=== PATIENT | female | born 1940 | race Caucasian/White ===

== ENCOUNTER 2018-02-15 17:15 | Emergency (ER) | payer MEDICAID, MEDICARE ==
[~2018-02-15] VITALS: Ht 160 cm; Wt 59.0 kg
[~2018-02-15 17:15] MED LIST: ABILIFY PO; CLONAZEPAM PO; COGENTIN PO; CYMBALTA PO; GABA300C PO; LISI-603 PO; LORAZEPAM PO; NEURON PO; QUETIAPINE FUMARATE PO; REMERON PO; RESPERIDONE PO; SERT50TA14 PO; TRAZODONE PO; ZOLPIDEM TARTRATE PO; ZYPREXA PO
[2018-02-15] MEDS ORDERED: HYDROMORPHONE 1 MG/1 ML DISP.SYRIN IM ONE (17:30)
[2018-02-15] MEDS ORDERED: ONDANSETRON 4 MG/2 ML VIAL IM ONE (17:30)
[2018-02-15] MEDS ORDERED: HYDROMORPHONE 2 MG/1 ML DISP.SYRIN ONE (17:36)
[2018-02-15] MEDS ORDERED: ONDANSETRON 4 MG/2 ML VIAL ONE (17:36)
--- NOTE | 2018-02-15 18:20 | NUR ---
RECEIVED PT, HIP PAIN, HX OF MULTIPLE FALLS. PELVIC XRAY DONE. PT RECEIVED PAIN KILLER.
--- NOTE | 2018-02-15 19:12 | NUR ---
Patient discharged to home in stable conditon. Written and verbal after care instructions given. Patient verbalizes understanding of instructions.
== END 2018-02-15 19:14 | disposition home or self-care (01) ==
LOC: ER 17:19
DX: G89.29 Other chronic pain (principal); M25.552 Pain in left hip; I10 Essential (primary) hypertension
CPT/HCPCS: 72170; 96372 ×2; 99284; J1170; J2405; A4663

== ENCOUNTER 2018-09-17 21:57 | Inpatient (IN) | payer MEDICARE, OTHER ==
[~2018-09-17] VITALS: Ht 152.4 cm; Wt 59.0 kg
[2018-09-17] MEDS ORDERED: ACET-2154 PO (22:19)
[2018-09-17] MEDS ORDERED: LORA1TAB PO (22:19)
[2018-09-17] MEDS ORDERED: OLAN5TAB3 PO (22:19)
[2018-09-17] MEDS ORDERED: TEMA7.5C PO (22:19)
[2018-09-17] MEDS ORDERED: MAG-55 PO (22:19)
[2018-09-17] MEDS ORDERED: GABA-534 PO (22:19)
[2018-09-17] MEDS ORDERED: MAGN400O6 PO (22:19)
[2018-09-17 22:35] LABS: BASOPHILS # (AUTO) 0.1 K/uL (0.0-8.0); BASOPHILS % (AUTO) 0.8 % (0.0-2.0); EOSINOPHILS % (AUTO) 0.5 % (0.0-7.0); HEMATOCRIT 36.8 % (31.2-41.9); HEMOGLOBIN 12.4 g/dL (10.9-14.3); LYMPHOCYTES # (AUTO) 1.5 K/uL (20.0-40.0); LYMPHOCYTES % (AUTO) 23.2 % (20.5-51.5); MEAN CORPUSCULAR HEMOGLOBIN 31.9 uug (24.7-32.8); MEAN CORPUSCULAR HGB CONC 34 g/dL (32.3-35.6); MONOCYTES # (AUTO) 0.7 K/uL (2.0-10.0); NEUTROPHILS # (AUTO) 4.2 K/uL (1.8-8.9); NEUTROPHILS % (AUTO) 64.5 % (38.5-71.5); PLATELET COUNT (AUTO) 229 K/uL (179-408); RED BLOOD CELL COUNT(AUTO) 3.88 MIL/uL (3.63-4.92); WHITE BLOOD COUNT (AUTO) 6.5 K/uL (3.8-11.8)
[2018-09-17 22:48] LABS: CARBON DIOXIDE 31 mmol/L (21-32); CHLORIDE 110 mmol/L (98-107); CREATININE 0.6 mg/dL (0.6-1.3); GLUCOSE 111 mg/dL (74-106); POTASSIUM 3.6 mmol/L (3.5-5.1); UREA NITROGEN, BLOOD 24 mg/dL (7-18)
[2018-09-17 22:54] LABS: ACETAMINOPHEN < 2.0 ug/mL (10-30); ALANINE AMINOTRANSFERASE 16 U/L (14-59); ALKALINE PHOSPHATASE 84 U/L (50-136); ASPARTATE AMINOTRANSFERASE 9 U/L (15-37); BILIRUBIN,DIRECT 0.1 mg/dL (0.0-0.2); BILIRUBIN,TOTAL 0.2 mg/dL (0.2-1.0); TOTAL PROTEIN, SERUM 6.9 g/dL (6.4-8.2)
[2018-09-17 22:57] LABS: ETHANOL < 3 MG/DL (0-0)
[2018-09-17 23:01] LABS: *BILIRUBIN,URIN NEGATIVE (NEGATIVE); *BLOOD, URINE NEGATIVE (NEGATIVE); *CLARITY,URINE SLIGHTLY CLOUDY (CLEAR); *COLOR,URINE YELLOW (YELLOW); *KETONES,URINE TRACE (NEGATIVE); *UROBILINOGEN,URINE 0.2 E.U./dl (NORMAL); LEUKOCYTE ESTERASE ,URINE NEGATIVE (NEGATIVE); NITRITE, URINE NEGATIVE (NEGATIVE); UGLUCOSE NEGATIVE (NEGATIVE)
[2018-09-17 23:02] LABS: THYROID STIMULATING HORMONE 2.613 mIU/mL (0.358-3.740)
[2018-09-17 23:09] LABS: BACTERIA,URINE NONE SEEN /HPF (NONE SEEN); MUCUS,URINE FEW /LPF (0-FEW); RBC,URINE 0-3 /HPF (0-3); SQUAMOUS EPITHELIAL CELL,UR FEW /HPF (NONE SEEN); URINE AMORPHOUS URATE MODERATE /HPF; WBC,URINE 0-3 /HPF (0-3)
[2018-09-17 23:19] LABS: *AMPHETAMINE, URINE NEGATIVE (NEGATIVE); *BARBITURATE, URINE NEGATIVE (NEGATIVE); *CANNABINOID, URINE NEGATIVE (NEGATIVE); *COCCAINE, URINE NEGATIVE (NEGATIVE); *OPIATE, URINE POSITIVE (NEGATIVE); *PHENCYCLIDINE SCREEN,URINE NEGATIVE (NEGATIVE)
--- NOTE | 2018-09-17 23:45 | NUR ---
PATIENT ANXIOUS,CONSTATNTLY GETTING OUT OF BED STATING "I AM SO NERVOUS." NO DISTRESS NOTED. PROVIDED COMFORT AND SAFETY MEASURES
[2018-09-18] MEDS ORDERED: LORAZEPAM 0.5 MG TABLET PO ONE
[2018-09-18] MEDS ORDERED: LORAZEPAM 1 MG TABLET ONE (00:02)
--- NOTE | 2018-09-18 00:03 | NUR ---
MEDICALLY CLEARED BY DR PAYTON
--- NOTE | 2018-09-18 00:33 | NUR ---
PATIENT TRANSFERED TO MHU VIA STEPHANE
[2018-09-18] MEDS ORDERED: LORAZEPAM 1 MG TABLET PO PRN (01:00)
[2018-09-18] MEDS ORDERED: MAGNESIUM HYDROXIDE 30 ML LIQUID UDC PO PRN (01:00)
[2018-09-18] MEDS ORDERED: MAG HYDROX/AL HYDROX/SIMETH 30 ML LIQUID UDC PO PRN (01:00)
[2018-09-18] MEDS: TEMAZEPAM 7.5 MG CAPSULE PO PRN (01:05)
[2018-09-18 01:15] VITALS: BP 157/86
[2018-09-18 01:22] VITALS: BP 157/86
--- NOTE | 2018-09-18 01:30 | NUR ---
Admission Note: 77 y.o. female brought to MHU from ER via wheelchair accompanied by ER staff. Pt admitted on a 5150 for GD under the care of Dr Gentile and Dr Maravilla. According to the 5150, Pt attempted to elope from her facility at [facility] by removing a glass window, then trying to crawl over a wall. Pt was agitated and grandiose, and appeared to be in a manic episode. Upon admission to the unit, Pt is A+Ox1 to herself only. VS stable, no c/o pain. Upon face to face evaluation, Pt is confused and forgetful. Pt states she has no recall of the events preceding her admission to MHU, and that It doesnt sound like something I would do. Denies SI/HI/AH/VH. Exhibits flat affect and pressured speech. Cooperative with admission process, but unable to sign paperwork d/t confusion. 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 I have a doctorate in literature. When asked how much Ativan she took, Pt had no recall of making that statement and denied taking any Ativan before she was admitted. Pt reports previous alcohol abuse but stated she hasnt drank for years. Skin assessment completed-skin c/d/i. Medical h/o HTN, OA, DJD, chronic pain, frequent falls, dementia, GERD, HLD, ETOH abuse, MDD, and schizophrenia-bipolar type. Allergy to levofloxacin noted. Dr Gentile and Dr Maravilla notified of admission, meds reconciled, orders received. Pt noted to ambulate with a weak, unsteady gait, FWW provided. Pt educated on falls precautions and safety. Denies access to any firearms. Pt belongings inventoried, contraband placed in unit locker. Per Pt request, Pts Jose notified of admission. Patient Rights handbook and Advisement given to Pt, rights and unit rules/expectations explained. Pt oriented to the unit, the phone, the restrooms, and her room, Pt will need reinforcement d/t cognitive impairment. Q 15 minute rounds initiated for safety.
[2018-09-18] MEDS: ACETAMINOPHEN 325 MG TABLET PO PRN ×2 (02:46→08:51)
[2018-09-18 07:30] VITALS: BP 165/82
[2018-09-18] MEDS: LORAZEPAM 0.5 MG TABLET PO PRN (08:51)
[2018-09-18] MEDS ORDERED: OLANZAPINE 10 MG VIAL IM ONE (11:30)
[2018-09-18] MEDS: GABAPENTIN 300 MG CAPSULE PO SCH ×2 (13:08→17:09)
[2018-09-18] MEDS ORDERED: LORAZEPAM 2 MG/1 ML VIAL IM ONE (14:30)
[2018-09-18 16:00] VITALS: BP 170/97
[2018-09-18] MEDS: OLANZAPINE ZYDIS 5 MG TAB.RAPDIS PO SCH (17:09)
--- NOTE | 2018-09-18 17:13 | NUR ---
DC NOTE: Patient is a 77 year old female who currently lives at [facility] [[address] [place] [address]; ]. Patient states she does not want to return to facility and would like to go home. However, patient unable to provide care for self at this time or live on her own due to mental status and worsening Dementia. fabric worker foreman called and spoke with patient , Jose Moore [ ], who states he thinks patient does need skilled placement, but would like this scientific technical writer to look for alternative options. fabric worker foreman will attempt to find new placement, but if alternative cannot be found, patient will have to return to [facility]. fabric worker foreman will follow-up with admissions department at facility. fabric worker foreman will continue to collaborate with patient, family, and MD on a safe and proper discharge.
[2018-09-18 22:57] VITALS: BP 161/82
--- NOTE | 2018-09-18 23:50 | NUR ---
TRANSFER NOTE: Patient to be transferred to room [address] per House Nursing Mason Foreman/Superintendant, patient will transfer with current 1:[address] Gentile notified. Patient to be transferred via wheelchair.
--- NOTE | 2018-09-18 23:55 | NUR ---
RECEIVED PT FROM MHU VIA WHEELCHAIR. PT IN NO ACUTE DISTRESS. PT SLEEPY. 1:1 SITTER AT BEDSIDE. SAFETY AND COMFORT PROVIDED. WILL CONTINUE TO MONITOR.
[2018-09-19] MEDS: IBUPROFEN 600 MG TABLET PO PRN (06:23)
[2018-09-19] MEDS: LORAZEPAM 0.5 MG TABLET PO PRN ×2 (07:20→15:41)
--- NOTE | 2018-09-19 07:21 | NUR ---
PT SLEPT 7 HOURS AND 15 MINUTES. PT SHOWS NO SIGNS OF ACUTE DISTRESS. WHEN SHE WAKE UP SHE IS CONSISTENTLY SAYING"I NEED HELP,I DON'T WANT TO , I'M IN PAIN."PT TRYING TO GET OUT OF THE BED. PT ANXIOUS KEEP REPEATING THAT SHE DOESN'T WANT TO AND NEEDS HELP AND IN PAIN. GAVE MOTRIN FOR PAIN AND ATIVAN . PT TOLERATED IT WELL. SITTER AT BEDSIDE. SAFETY AND COMFORT PROVIDED. WILL ENDORSE ACCORDINGLY TO INCOMING NURSE FOR CONTINUITY OF CARE.
[2018-09-19 07:30] VITALS: BP 181/83
[2018-09-19 07:45] LABS: CARBON DIOXIDE 27 mmol/L (21-32); CHLORIDE 110 mmol/L (98-107); CREATININE 0.5 mg/dL (0.6-1.3); GLUCOSE 102 mg/dL (74-106); POTASSIUM 3.5 mmol/L (3.5-5.1); UREA NITROGEN, BLOOD 20 mg/dL (7-18)
[2018-09-19] MEDS: OLANZAPINE ZYDIS 5 MG TAB.RAPDIS PO SCH ×3 (08:07→17:04)
[2018-09-19] MEDS: GABAPENTIN 300 MG CAPSULE PO SCH ×3 (08:07→17:04)
[2018-09-19] MEDS: ACETAMINOPHEN 325 MG TABLET PO PRN (09:16)
[2018-09-19] MEDS: LIDOCAINE 5% PATCH TD SCH (11:14)
[2018-09-19] MEDS: HYDROCODONE/APAP 5-325MG TABLET PO PRN ×2 (11:15→21:15)
--- NOTE | 2018-09-19 11:50 | NUR ---
Received patient awake in bed. Anxiety, as per record and endorse given around 6am , complaining of back pain scale 7/10, motrin given at 6am as per record. Aftter around 1 hr, patient still c/o of pain despite of Tylenol given as PRN. MULT AU MATIC OPERATOR Joseph aware. norco 5-325mg given and lidocaie patch. not in distress. will continue monitor
[2018-09-19 12:00] VITALS: BP 163/72
[2018-09-19 15:00] VITALS: BP 173/82
[2018-09-19] MEDS: hydrALAZINE HCL 25 MG TABLET PO PRN ×2 (17:04→22:24)
--- NOTE | 2018-09-19 17:27 | NUR ---
Patient positive to MRSA nares. On contact isolation. For transfer to [facility].
--- NOTE | 2018-09-19 19:30 | NUR ---
PATIENT RECEIVED LYING IN BED AND CONFUSED. SAFETY AND COMFORT MEASURES PROVIDED. BED IN LOWEST POSITION, SIDE RAILS X2, CALL LIGHT WITHIN REACH. 1:1 SITTER FOR SAFETY OBSERVATION AT BEDSIDE.
[2018-09-19 20:14] VITALS: BP 154/69
[2018-09-19] MEDS: MUPIROCIN 2% OINT 22 GM TUBE NS SCH (21:15)
[2018-09-20] MEDS: HYDROCODONE/APAP 5-325MG TABLET PO PRN ×3 (01:02→15:58)
[2018-09-20] MEDS: hydrALAZINE HCL 25 MG TABLET PO PRN (05:54)
--- NOTE | 2018-09-20 06:16 | NUR ---
PATIENT SLEPT FOR 8 HOURS. NO SIGNS OF ACUTE DISTRESS. SAFETY AND COMFORT MEASURES PROVIDED. 1:1 SITTER AT BEDSIDE FOR SAFETY. IV IN TACT. WILL ENDORSE CONTINUITY OF CARE TO ON COMING NURSE. BP AT 167.93 AND HR 65. HYDRALAZINE GIVEN AT 6AM WILL CONTINUE TO MONITOR. Addendum: 09/20/18 at 0618 by JANNA WAYNE RN CORRECTION: BP 167/93
--- NOTE | 2018-09-20 07:10 | NUR ---
RECEIVED REPORT, PATIENT IN BED, RESTLESS, AGITATED AND CONFUSED. BED AT LOWEST POSITION SIDE RAILS UP X2, SITTER AT BEDSIDE. HEEL SHAPER NURSE REPORTED MEDICATION GIVEN FOR AGITATION.
[2018-09-20 07:30] VITALS: BP 199/86
[2018-09-20] MEDS: LORAZEPAM 0.5 MG TABLET PO PRN ×2 (07:46→18:17)
--- NOTE | 2018-09-20 07:46 | NUR ---
ATIVAN ADMINISTERED. PATIENT IS ANXIOUS, TRYING TO GET OUT OF BED, AND RESTLESS. TOLERATED WELL.
--- NOTE | 2018-09-20 08:19 | NUR ---
NORCO ADMINISTRATION AT 0102 WAS NOT ADMINISTERED OR TAKEN OUT OF PYXIS. SPOKE WITH LUCY IN PHARMACY REGARDING THIS ISSUE AND INFORMED TO NOTATE IN DOCUMENTATION.
[2018-09-20] MEDS: OLANZAPINE ZYDIS 5 MG TAB.RAPDIS PO SCH ×3 (08:48→17:26)
[2018-09-20] MEDS: GABAPENTIN 300 MG CAPSULE PO SCH (08:48)
[2018-09-20] MEDS: LIDOCAINE 5% PATCH TD SCH (08:49)
[2018-09-20] MEDS: MUPIROCIN 2% OINT 22 GM TUBE NS SCH ×2 (08:49→20:44)
[2018-09-20] MEDS: LISINOPRIL 10 MG TABLET PO SCH ×2 (08:55→09:00)
[2018-09-20] MEDS: IBUPROFEN 600 MG TABLET PO PRN (10:24)
--- NOTE | 2018-09-20 11:57 | NUR ---
Discharge plannin09/19/2018: wax ball knock out worker called [facility] [[address] [place] [address]; ] and spoke with Keesha barrios, requesting to speak with cruise coordinator regarding patient returning to facility. Per Keesha, cruise coordinator, Ron Peralta, was "out of the office". Keesha stated she would give the message to him when he returns. 09/20/2018: After receiving no return phone call from cruise coordinator, social worker school called [facility] again and spoke with Keesha barrios. Per Keesha, cruise coordinator is again "out of the office". Keesha states she did pass message along, but will give cruise coordinator another message to call this senior underwriter back regarding patient returning to facility. wax ball knock out worker also requested to speak with Jacklyn HALL, who is apparently also "out of the office". wax ball knock out worker awaiting call back from either cruise coordinator or RAFAEL. wax ball knock out worker to follow-up as needed.
[2018-09-20] MEDS: GABAPENTIN 400 MG CAPSULE PO SCH ×2 (12:38→17:26)
[2018-09-20] MEDS: DIVALPROEX SPRINKLE 125 MG CAP.SPRINK PO SCH ×2 (12:38→17:26)
[2018-09-20] MEDS ORDERED: GABAPENTIN 300 MG CAPSULE PO SCH (13:00)
[2018-09-20 14:52] VITALS: BP 128/59
--- NOTE | 2018-09-20 19:01 | NUR ---
PATIENT AGITATED AT TIMES THROUGHOUT SHIFT, ATIVAN GIVEN TO RELAX. PATIENT REPORTING PAIN, PAIN MANAGEMENT DONE. SITTER AT BEDSIDE. CURRENTLY SHOWS NO SIGNS OF DISTRESS
[2018-09-20 19:47] VITALS: BP 146/65
--- NOTE | 2018-09-21 | NUR ---
PATIENT C/O PAIN IN LOWER BACK. GIVEN NORCO 1 TAB PO PRN FOR PAIN. SITTER AT BEDSIDE.
[2018-09-21] MEDS: HYDROCODONE/APAP 5-325MG TABLET PO PRN ×3 (06:32→17:46)
--- NOTE | 2018-09-21 07:20 | NUR ---
RECEIVED PATIENT LAYING IN BED ASLEEP, NO DISTRESS NOTED. BED IN LOWEST POSITION, SIDE RAILS UP X2, AND SITTER AT BEDSIDE. SAFETY MEASURES PROVIDED.
[2018-09-21 07:24] VITALS: BP 171/87
[2018-09-21] MEDS: DIVALPROEX SPRINKLE 125 MG CAP.SPRINK PO SCH ×3 (08:55→17:46)
[2018-09-21] MEDS: GABAPENTIN 400 MG CAPSULE PO SCH ×3 (08:56→17:46)
[2018-09-21] MEDS: LISINOPRIL 10 MG TABLET PO SCH (08:57)
[2018-09-21] MEDS: OLANZAPINE ZYDIS 5 MG TAB.RAPDIS PO SCH ×3 (08:59→17:46)
[2018-09-21] MEDS: LIDOCAINE 5% PATCH TD SCH (08:59)
[2018-09-21] MEDS: MUPIROCIN 2% OINT 22 GM TUBE NS SCH ×2 (08:59→20:23)
[2018-09-21 11:55] VITALS: BP 137/72
[2018-09-21] MEDS ORDERED: LIDOCAINE 5% PATCH TD SCH (14:00)
[2018-09-21 15:55] VITALS: BP 150/60
--- NOTE | 2018-09-21 18:28 | NUR ---
Patient calm throughout shift,pain management and safety measures provided. patient alert and oriented x3 with periods of confusion. No ditress noted. bed in lowest position, side rail up x2 and sitter at bedside.
[2018-09-21 19:15] VITALS: BP 152/61
--- NOTE | 2018-09-21 19:25 | NUR ---
Received patient awake in high fowlers position, not in any form of distress. Noted with sitter at bedside for safety. Patient calm and pleasant on approach and engages in conversation. Bed in low position, locked, side rails up for safety. Will continue to monitor.
[2018-09-21] MEDS: IBUPROFEN 600 MG TABLET PO PRN (20:22)
[2018-09-21] MEDS: ACETAMINOPHEN 325 MG TABLET PO PRN (22:07)
[2018-09-21] MEDS: TEMAZEPAM 7.5 MG CAPSULE PO PRN (23:04)
--- NOTE | 2018-09-22 05:42 | NUR ---
Patient slept well throughout the night. No distress noted. Sitter still at bedside for safety. Patient has been calm and cooperative. With occasional complaints of pain, relieved by prn pain medications. Ensured safety and comfort. Attended all needs.
[2018-09-22] MEDS: HYDROCODONE/APAP 5-325MG TABLET PO PRN ×3 (06:18→22:34)
[2018-09-22] MEDS: LORAZEPAM 0.5 MG TABLET PO PRN ×2 (07:37→20:18)
[2018-09-22] MEDS: hydrALAZINE HCL 25 MG TABLET PO PRN ×2 (07:37→22:51)
--- NOTE | 2018-09-22 07:40 | NUR ---
ATIVAN ADMINISTERED. PATIENT IS ANXIOUS, TRYING TO GET OUT OF BED, AND RESTLESS. TOLERATED WELL.
[2018-09-22 08:00] VITALS: BP 182/73
[2018-09-22] MEDS: MUPIROCIN 2% OINT 22 GM TUBE NS SCH ×2 (08:00→20:21)
[2018-09-22] MEDS: LIDOCAINE 5% PATCH TD SCH (08:00)
[2018-09-22] MEDS: GABAPENTIN 400 MG CAPSULE PO SCH ×3 (08:00→16:09)
[2018-09-22] MEDS: LISINOPRIL 10 MG TABLET PO SCH (08:00)
[2018-09-22] MEDS: OLANZAPINE ZYDIS 5 MG TAB.RAPDIS PO SCH ×3 (08:00→16:09)
[2018-09-22] MEDS: DIVALPROEX SPRINKLE 125 MG CAP.SPRINK PO SCH ×3 (08:00→16:09)
[2018-09-22] MEDS ORDERED: LISINOPRIL 10 MG TABLET PO ONE (09:15)
[2018-09-22 09:53] VITALS: BP 134/74
--- NOTE | 2018-09-22 14:25 | NUR ---
PATIENT C/O PAIN IN LOWER BACK. GIVEN NORCO 1 TAB PO PRN FOR PAIN. SITTER AT BEDSIDE.
[2018-09-22] MEDS: HYDROXYZINE PAMOATE 25 MG CAPSULE PO PRN (16:09)
[2018-09-22 16:33] VITALS: BP 146/59
[2018-09-22 20:11] VITALS: BP 141/56
[2018-09-22] MEDS: ACETAMINOPHEN 325 MG TABLET PO PRN (20:19)
[2018-09-22 20:33] VITALS: BP 141/56
[2018-09-22] MEDS: TEMAZEPAM 7.5 MG CAPSULE PO PRN (23:20)
[2018-09-23] MEDS: HYDROXYZINE PAMOATE 25 MG CAPSULE PO PRN (03:03)
[2018-09-23] MEDS: ACETAMINOPHEN 325 MG TABLET PO PRN (03:03)
[2018-09-23] MEDS: HYDROCODONE/APAP 5-325MG TABLET PO PRN ×2 (05:16→17:27)
--- NOTE | 2018-09-23 05:47 | NUR ---
Patient slept intermittently throughout the night. Sitter still at bedside for safety. Patient has been agitated all night and was continuously complaining of pain, prn pain medications and anxiety medications given. Ensured safety and comfort. Attended all needs.
[2018-09-23 07:33] VITALS: BP 184/77
[2018-09-23] MEDS: hydrALAZINE HCL 25 MG TABLET PO PRN ×2 (08:06→17:27)
[2018-09-23] MEDS: OLANZAPINE ZYDIS 5 MG TAB.RAPDIS PO SCH ×3 (08:06→16:21)
[2018-09-23] MEDS: GABAPENTIN 400 MG CAPSULE PO SCH ×3 (08:06→16:21)
[2018-09-23] MEDS: DIVALPROEX SPRINKLE 125 MG CAP.SPRINK PO SCH ×3 (08:06→16:21)
[2018-09-23] MEDS: LIDOCAINE 5% PATCH TD SCH (08:06)
[2018-09-23] MEDS: MUPIROCIN 2% OINT 22 GM TUBE NS SCH (08:19)
[2018-09-23] MEDS ORDERED: LISINOPRIL 10 MG TABLET PO SCH (09:00)
[2018-09-23] MEDS ORDERED: HYDROCODONE/APAP 10-325 MG TABLET PO PRN (10:15)
--- NOTE | 2018-09-23 11:35 | NUR ---
Discahreg plannin:22am: After receiving no return phone call, secondary social studies teacher called [facility] [[address] [place] [address]; ] and left a voicemail for bed placement coordinator, Ron Peralta, requesting a callback regarding patient returning to the facility when ready. 11:30am: civil service worker received return phone call from Ron stating that patient is on a 7-day bed hold which expires today. civil service worker inquired if patient would be accepted back past the 7-day bed hold. Per Ron, he is speaking with his DON about whether or not patient can have a 1:1 sitter at the facility. Ron states he will call this copywriter back. civil service worker awaiting return phone call and has informed Dr. Gentile of above information.
--- NOTE | 2018-09-23 12:51 | NUR ---
Discharge planning: overhead worker spoke with Dr. Zarate regarding patient progress and discharge plan. Per Dr. Gentile, she would like to discharge patient today. 12:52pm: overhead worker called [facility] [[address] [place] [address]; ] and left a voicemail for assessment coordinator, Ron Peralta, informing him that patient will be discharging today. Patient is currently on a 7 day bed hold that expires today. overhead worker awaiting return call.
--- NOTE | 2018-09-23 14:22 | NUR ---
DC NOTE: Patient will be discharged to [facility] [[address] [place] [address]; ] and transportation will be provided by ambulance at 4:00pm. Please arrange ambulance transportation for this patient. Acceptance back to facility has been received by preparation center coordinator, Ron Peralta, who states they are ready to accept the patient today. Patient is AxOx1, denies suicidal and homicidal ideations, is able to plan for self-care, and agreeable to discharge plans. fitness worker has called and spoken with patient boyfriend/, Jose Moore [[phone]], who is aware and agreeable to discharge plans. Patient will follow-up Dr. Gentile [psychiatrist] and Dr. Maravilla [audio technician] at the facility. Patient has been provided with mental health resources including [facility] Crisis Line [ ], Jordana Agee [ ], and National Suicide Prevention Lifeline [ ]. Addendum: 09/23/18 at 1509 by ZUHAIR DELUCA Update: fitness worker informed that patient is on isolation for MRSA of the nares and is currently receiving Bactroban. fitness worker called Ron, preparation center coordinator, and informed him of patient isolation status. Per Ron, that will not be a problem and patient can still be discharged today to the facility. fitness worker will follow-up as needed.
--- NOTE | 2018-09-23 15:37 | NUR ---
FIREARMS REPORT: hot iron worker completed and submitted a [employer] firearms report for a 5250 GD certification.
[2018-09-23 16:00] VITALS: BP 172/76
[2018-09-23] MEDS: LORAZEPAM 0.5 MG TABLET PO PRN (17:22)
[2018-09-23] MEDS ORDERED: CLONIDINE HCL 0.1 MG TABLET PO ONE (17:45)
[2018-09-23 17:50] VITALS: BP 172/76
--- NOTE | 2018-09-23 18:36 | NUR ---
dc orders received noted and carried out,dc instruction and rn report given to shelter pt left the facility via ambulances in stable condition
== END 2018-09-23 18:40 | DRG 885 ==
LOC: ER 21:58 → GPS 23:00 → MEDSURG3 09-18 23:36 → GPSOV3 09-18 23:40
PROVIDERS: ADMIT Psychiatry & Neurology Psychosomatic Medicine; ATTEND Nurse Practitioner Acute Care
DX: F25.0 Schizoaffective disorder, bipolar type (principal); F01.50 Vascular dementia, unspecified severity, without behavioral disturbance, psychotic disturbance, mood disturbance, and anxiety; E87.0 Hyperosmolality and hypernatremia; E78.5 Hyperlipidemia, unspecified; G89.4 Chronic pain syndrome; Z96.642 Presence of left artificial hip joint; K21.9 Gastro-esophageal reflux disease without esophagitis; F41.0 Panic disorder [episodic paroxysmal anxiety]; F11.10 Opioid abuse, uncomplicated; F10.10 Alcohol abuse, uncomplicated; Y90.0 Blood alcohol level of less than 20 mg/100 ml; Z91.14 Patient's other noncompliance with medication regimen; R79.89 Other specified abnormal findings of blood chemistry; M19.93 Secondary osteoarthritis, unspecified site; M54.5 Low back pain; E86.1 Hypovolemia; I10 Essential (primary) hypertension; Z79.899 Other long term (current) drug therapy
CPT/HCPCS: 36415; 70030-TC; 71045; 73502; 80307; 84443; 85025; 85730; 93005; 97116; 97530; A4663; G0378; G0480; G0480-TC; J2060; J2358